=== PATIENT | male | born 1965 | race Caucasian/White ===

== ENCOUNTER → 2017-12-05 08:09 | Outpatient (CLI) | payer BC, SELFPAY ==
[2017-12-05 12:21] LABS: Absolute Lymphocyte Count 2.09 X10^3/ul (0.83-4.51); Absolute Neutrophil Count 5.7 X10^3/uL (2.0-7.7); Basophil# 0.02 X10^3/uL; Basophil% 0.2 % (0-1); Eosinophil# 0.44 X10^3/uL; Hemoglobin 14.8 g/dl (13.0-16.5); Lymphocyte # 2.09 X10^3/ul (4.0); Lymphocyte % 23.7 % (19-41); Mean Corp Hgb Conc 32.9 g/gl (32-36); Mean Corpuscular Hgb 27.9 pg (27.0-32.0); Mean Corpuscular Volume 84.9 fL (80-94); Mean Platelet Vol. 10.8 fl (6.2-12.0); Monocyte# 0.53 X10^3/uL; Neutrophil # 5.73 X10^3/uL (2.7-7.7); Neutrophil % 64.9 % (47-70); Platelet Count 322 K/mm3 (150-450); RBC Distribution Width CV 13.6 % (11.6-14.6); RBC Distribution Width SD 41.8 fl (35.1-43.9); White Blood Count 8.8 K/mm3 (4.4-11.0)
[2017-12-05 12:34] LABS: POSITIVE COUNT NO; POSITIVE DIFFERENTIAL NO; POSITIVE MORPHOLOGY NO
[2017-12-05 12:42] LABS: AST(SGOT) 18 U/L (15-37); Alanine Aminotransfer ALT/SGPT 49 U/L (16-61); Albumin, Serum 3.7 g/dL (3.2-5.0); Alkaline Phosphatase 66 U/L (45-117); Anion Gap 9 (5-15); BUN 20 mg/dL (7-18); BUN/Creat Ratio 21.6 RATIO (10-20); Calcium,Total 8.8 mg/dL (8.5-10.1); Chloride 105 mmol/L (98-107); Creatinine, Serum 0.93 mg/dL (0.70-1.30); EST Glomerular Filtration Rate 91 mL/min (>60); Est Glom Filt Rate - Afr Amer 110 mL/min (>60); Globulin 3.7 g/dL (2.2-4.2); Glucose 201 mg/dL (74-106); Protein, Total 7.4 g/dL (6.4-8.2); Sodium Level 138 mmol/L (136-145); Thyroid Stim Hormone (TSH) 2.21 uIU/mL (0.358-3.74)
== END ==
PROVIDERS: Family Provider Family Medicine; PCP Family Medicine; Visit Provider Family Medicine
DX: I10 Essential (primary) hypertension (principal); E11.9 Type 2 diabetes mellitus without complications; E03.9 Hypothyroidism, unspecified
CPT/HCPCS: 36415; 80053; 84443; 85025

== ENCOUNTER 2018-07-28 10:50 | Day surgery (SDC) | payer BC, SELFPAY ==
--- NOTE | 2018-07-28 | CYST_PTH ---
PATIENT: YAS LACY LOC: [facility] [place] U#:[id number] AGE/SX: 53/M ROOM: RE07/28/[address]: Dr. Martin Sharma DDS : 1965 BED: DIS: 07/28/2018 SPEC #: [id number] RECD: 07/31/18 13:42 STATUS: DESI SASHA #: [id number] JUNIOR: 07/28/18 00:[address]: Martin Sharma DEPT: SURGICAL PATHOLOGY RECD BY: Arturo Klein ENTERED: 07/31/18 13:42 SP TYPE: Cyst OTHR DR: Dr. Abdulkadir Esparza MD Tissues: Mandible, NOS Procedures: Decalcification bone/plaque Surgery Specimen Level IV HEADER OPERATION: Excision lesion/tumor mandible/jaw PRE-OP DIAGNOSIS: Odontogenic cyst TISSUE SUBMITTED: Cystic lining right mandible MICROSCOPIC DIAGNOSIS Cystic lining right mandible, excision: Consistent with odontogenic keratocyst cyst. SJ:osito 08/03/18 COMMENT Correlation with clinical, radiologic findings and appropriate follow up are necessary. Case has been reviewed in consultation with Dr. Enamorado who concurs with the above diagnosis. IDC:AM MICROSCOPIC DESCRIPTION Slides are reviewed. GROSS DESCRIPTION Received in fixative is one container labeled with the patient's name and designated cystic lining right mandible. The specimen consists of multiple irregular fragments of figueroa soft tissue mixed with fragments of bone that in aggregate measure 3 x 2.5 x 0.3 cm. The entire specimen is submitted in one cassette after decalcification. / SJ:osito 07/31/18 TC:5 CPT: 81287, [id number]
[2018-07-28 11:18] VITALS: BP 146/92; PULSE 77; RESP 16; TEMP 36.8; O2SAT 98; BMI 38.7
[2018-07-28 11:30] LABS: Bedside Glucose 209 mg/dL (70-110)
[2018-07-28 11:41] LABS: Hematocrit 43.2 % (40-54); Hemoglobin 14.7 g/dl (13.0-16.5); Mean Corpuscular Hgb 29.5 pg (27.0-32.0); Mean Corpuscular Volume 86.6 fL (80-94); Mean Platelet Vol. 10.1 fl (6.2-12.0); Platelet Count 319 K/mm3 (150-450); RBC Distribution Width CV 15.2 % (11.6-14.6); RBC Distribution Width SD 47.7 fl (35.1-43.9); Red Blood Count 4.99 M/mm3 (4.6-6.2); White Blood Count 9.6 K/mm3 (4.4-11.0)
[2018-07-28 11:46] LABS: Scan Indicated on CBC? Y/N NO
[2018-07-28] MEDS: Bupivacaine Mpf 0.5% 30 ML VIAL (12:42)
[2018-07-28 13:25] VITALS: BP 130/93; BP 146/92; PULSE 80; RESP 16; TEMP 36.2; O2SAT 95
[2018-07-28 13:30] VITALS: BP 128/82; BP 146/92; PULSE 70; RESP 16; O2SAT 96
--- NOTE | 2018-07-28 13:38 | PCM.OPRPT ---
Problem List (1) Benign odontogenic neoplasm of lower jaw Status: Acute Report of Operation Date of Procedure: 07/28/18 Pre-Operative Diagnosis: Mandibular lesion unknown biology Post-Operative Diagnosis: Probable odontogenic lesion mandible Surgery/Procedure Performed:: Excision odontogenic lesion right mandible Description of Surgical Findings:: Patient identified in pre-op holding room and the procedure risk, benefits and potential complication were gone over. Signed const obtained. He was taking to the operating room and placed in the supine position where the anesthetic monitors were placed. He was given IV general anesthesia and intubated successfully orally. The patient was then prepped and draped in the usuaul manner for oral surgery. Patient was noted to have wide fluctuation in his blood pressure whereas, Dr. Gonzáles managed very well and appropriately. At this time local anesthesia was administered in a right mandibular nerve block. Throat pack placed and full thickness flap elevated right posterior mandible. A syringe and 18 ga needle was poked through the bone and aspiration of cystic fluid. At this time using rongeurs bone window was removed and the cystic lining was removed and the crystal cavity which measured approx 3-4 centimeters was debrided of all soft tissues. The cavity was irrigated and sutured with 3-0 chromic suture. The patient was eventually awakened and extubated and taken to recovery breathing spontaneously. He was alert. Blood loss was minimal all sponge and needle counts were correct. Type of Anesthesia:: General Specimen's removed: cystic tissue right mandible. Estimated Blood Loss (mL): minimal
[2018-07-28 13:45] VITALS: BP 112/81; BP 146/92; PULSE 73; RESP 16; O2SAT 98
[2018-07-28] MEDS: Ketorolac 30 MG/ML Syringe IV (13:51)
[2018-07-28 14:00] VITALS: BP 121/82; BP 146/92; PULSE 69; RESP 16; TEMP 36.3; O2SAT 98
[2018-07-28 14:34] VITALS: BP 135/78; BP 146/92; PULSE 72; RESP 18; TEMP 36.6; O2SAT 98
== END 2018-07-28 14:36 | disposition home or self-care (01) ==
LOC: SDC 10:51 → AC 10:53
PROVIDERS: Anesthesiology; Family Provider Family Medicine; PCP Family Medicine; Referring Provider Dentist Oral and Maxillofacial Surgery; Visit Provider Dentist Oral and Maxillofacial Surgery
PROC: (CPT 41826; principal; 2018-07-28 12:20)
DX: D16.5 Benign neoplasm of lower jaw bone (principal); K09.0 Developmental odontogenic cysts; J45.909 Unspecified asthma, uncomplicated; I10 Essential (primary) hypertension; E11.9 Type 2 diabetes mellitus without complications
CPT/HCPCS: 00170; 41826; 36415; 82962; 85027; 88304; 88305; 88311; J7120